=== PATIENT | male | born 1995 | race African-American/Black ===

== ENCOUNTER 2019-08-28 23:34 | Emergency (ER) | payer SELFPAY ==
[~2019-08-28] VITALS: Ht 172.7 cm; Wt 77.1 kg
--- NOTE | 2019-08-28 23:37 | NUR ---
ED Nurse Note: pt JAYCOBShelby BRITTA RA [address] after OD on narcotic, pt reports snorting percoce and that he has done it before but has never had this reaction to it. per EMS, they administered narcan and zofran to pt who was initially unconscious, friends were performing CPR when EMS arrived. pt is awake and alert in ED, able to answer all questions and follow commands, he presents with an 18 g IV placed in R AC by paramedics
[2019-08-28 23:39] VITALS: BP 132/82
--- NOTE | 2019-08-28 23:41 | Emergency Room Report ---
History of Present Illness General Chief Complaint: Substance Abuse Source: Patient Present Illness HPI Is a 24-year-old male who is homeless. He presents with chief plaint is overdose. He was unresponsive and his friend called 911. Per EMS he was unresponsive with sonorous respiration. Pupils were pinpoint. They gave him 2 mg Narcan which woke him up. Patient said he took some Percocet today. He told me that he snorted 30 mg of Percocet. He have done this in the past but denies any fentanyl use or any other drug use. No suicidal thoughts homicidal thought. Nothing made it better. Nothing made it worse. Allergies: Coded Allergies: No Known Allergies (Unverified , 08/28/19) COVID-19 Screening Contact w/high risk pt: No Experienced COVID-19 symptoms?: No COVID-19 Testing performed ACCOUNT OFFICER: No Patient History Past Medical History: see triage record, old chart reviewed Past Surgical History: none Pertinent Family History: none Social History: Reports: drug use Immunizations: other Reviewed Nursing Documentation: PMH: Agreed; PSxH: Agreed Nursing Documentation-PMH Past Medical History: No Stated History Review of Systems Eye: Denies: eye pain, blurred vision ENT: Denies: ear pain, nose congestion, throat swelling Respiratory: Denies: cough, shortness of breath Cardiovascular: Denies: chest pain, palpitations Gastrointestinal: Denies: abdominal pain, diarrhea, nausea, vomiting Musculoskeletal: Denies: back pain, joint pain Skin: Denies: rash Neurological: Denies: headache, numbness Endocrine: Denies: increased thirst, increased urine Hematologic/Lymphatic: Denies: easy bruising All Other Systems: negative except mentioned in HPI Physical Exam Vital Signs Date Time Temp Pulse Resp B/P (MAP) Pulse Ox O2 Delivery O2 Flow Rate FiO2 08/28/19 23:32 98.4 104 18 132/82 (99) 98 Room Air Vitals unremarkable Sp02 EP Interpretation: reviewed, normal General Appearance: well appearing, no apparent distress, alert Head: normocephalic, atraumatic Eyes: bilateral eye PERRL, bilateral eye EOMI ENT: hearing grossly normal, normal pharynx Neck: full range of motion, supple, no meningismus Respiratory: chest non-tender, lungs clear, normal breath sounds Cardiovascular #1: regular rate, rhythm, no murmur Gastrointestinal: normal bowel sounds, non tender, no mass, no organomegaly, no bruit, non-distended Musculoskeletal: back normal, normal range of motion, gait/station normal Psychiatric: mood/affect normal Medical Decision Making Diagnostic Impression: Primary Impression: Opiate or related narcotic overdose Qualified Codes: T40.601A - Poisoning by unspecified narcotics, accidental ( unintentional), initial encounter ER Course This patient presents with accidental overdose. No evidence of suicidal thoughts homicidal thought. No criteria 5150. Will observe for at least an hour. If no complication, can be discharged. This patient is a chronic risk of self injury due to poor impulse control, limited coping skills, and judgment intermittently impaired by intoxication. I believe that the available clinical evidence to suggest that these characteristics derived primarily from personality disorder and are likely very stable over time. Hospitalization would likely attenuate risk of self-harm only during care home period, without lasting risk reduction. Serious self-harm , while possible, would likely be inadvertent, and because of impulsivity, and foreseeable. For these reasons, I do not believe hospitalization would provide meaningful reduction in risk of self-harm. Last Vital Signs Date Time Temp Pulse Resp B/P (MAP) Pulse Ox O2 Delivery O2 Flow Rate FiO2 08/28/19 23:32 98.4 104 18 132/82 (99) 98 Room Air Status: improved Disposition: HOME, SELF-CARE Condition: Stable Additional Instructions: Abstain from drugs and alcohol. Go to rehab. Follow-up with your doctor in 7 days but return if worse. Rasheed Cisneros MD Aug 28, 2019 23:41
[2019-08-29 00:10] VITALS: BP 132/82
--- NOTE | 2019-08-29 00:16 | NUR ---
ER DISCHARGE NOTE: Patient is insisting on leaving, RN spoke with pt's brother in waiting room who will be taking pt home. 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 he is cleared to be discharged per ERMD, pt is aox4, on room air, with stable vital signs. pt was given dc instructions, pt was able to verbalize understanding, pt id band and iv site removed without complications. pt is able to ambulate with steady gait. pt took all belongings.
== END 2019-08-29 00:10 | disposition home or self-care (01) ==
LOC: EDBD 23:34 → EMR 23:59
DX: T40.601A Poisoning by unspecified narcotics, accidental (unintentional), initial encounter (principal); Z59.0 Homelessness; X58.XXXA Exposure to other specified factors, initial encounter; Y92.9 Unspecified place or not applicable
CPT/HCPCS: 99282